=== PATIENT | female | born 1995 | race Caucasian/White ===

== ENCOUNTER 2018-10-04 12:32 | Emergency (ER) | payer MEDICAID, OTHER ==
[~2018-10-04] VITALS: Ht 165.1 cm; Wt 95.3 kg
[~2018-10-04 12:32] MED LIST: DOXY1TCP PO
[2018-10-04 12:55] VITALS: BP 145/86
--- NOTE | 2018-10-04 13:08 | NUR ---
PT TO LOBBY
--- NOTE | 2018-10-04 13:21 | NUR ---
PT AMBULATED TO BED 02.
--- NOTE | 2018-10-04 13:36 | NUR ---
PT C/O NAUSEA AND DIZZINESS AT THIS TIME. DENIES NAUSEA, VOMITING, FEVER. PT STATES PAIN IS 0/10 AT THIS TIME. DENIES ANY DYSURIA. VSS; PATIENT POSITIONED FOR COMFORT; HOB ELEVATED; BEDRAILS UP X1; BED DOWN. ER MD MADE AWARE OF PT STATUS.
[2018-10-04 15:16] VITALS: BP 128/79
== END 2018-10-04 15:16 | disposition home or self-care (01) ==
LOC: MED 12:32
DX: N39.0 Urinary tract infection, site not specified (principal); N94.0 Mittelschmerz; K21.9 Gastro-esophageal reflux disease without esophagitis; Z79.899 Other long term (current) drug therapy
CPT/HCPCS: 81002; 81025; 99283

== ENCOUNTER 2019-07-08 11:31 | Emergency (ER) | payer OTHER ==
[~2019-07-08] VITALS: Ht 167.6 cm; Wt 121.3 kg
[2019-07-08 11:37] VITALS: BP 150/97
--- NOTE | 2019-07-08 11:50 | NUR ---
DR. HOOD AT BEDSIDE.
--- NOTE | 2019-07-08 12:05 | NUR ---
PT C/O NAUSEA AND ABD PAIN. PAIN 7/10 WHEN PALPATING LOWER ABD. PT STATES HER LMP WAS FEB 2. NORMAL FLOW LASTED 5 DAYS. PT STATES NO SPOTTING SINCE FEB 2. PT HAS TAKEN SEVERAL PREGNACY TEST; ALL WERE NEGATIVE. PT STATES THAT SHE HAS CRAMPING AT PM. PT IS COMFORTABLE AT BEDSIDE. NO PMHX NKA/NKDA.
--- NOTE | 2019-07-08 12:08 | NUR ---
LAB AT BEDSIDE.
--- NOTE | 2019-07-08 12:18 | NUR ---
PT AMBULATED TO RESTROOM FOR URINE.
--- NOTE | 2019-07-08 12:33 | NUR ---
ULTRASOUND AT BEDSIDE
[2019-07-08 12:35] LABS: BASOPHILS # (AUTO) 0.1 K/uL (0.00-0.22); BASOPHILS % (AUTO) 0.6 % (0.0-2.0); EOSINOPHILS # (AUTO) 0.1 K/uL (0-0.4); EOSINOPHILS % (AUTO) 0.9 % (0.0-4.0); HEMATOCRIT 43.6 % (36-48); LYMPHOCYTES # (AUTO) 2.8 K/uL (2.5-16.5); LYMPHOCYTES % (AUTO) 27.4 % (20.5-51.1); MEAN CORPUSCULAR HEMOGLOBIN 27 pg (27-31); MEAN CORPUSCULAR HGB CONC 32 g/dL (33-37); MEAN CORPUSCULAR VOLUME 84.2 fL (80-94); MONOCYTES # (AUTO) 0.5 K/uL (0.8-1.0); MONOCYTES % (AUTO) 4.7 % (1.7-9.3); NEUTROPHILS # (AUTO) 6.9 K/uL (1.8-7.7); NEUTROPHILS % (AUTO) 66.4 % (42.2-75.2); PLATELET COUNT (AUTO) 371 K/uL (140-450); RED BLOOD CELL COUNT(AUTO) 5.18 MIL/uL (4.20-5.40); RED CELL DISTRIBUTION WIDTH 15.2 % (11.6-13.7); WHITE BLOOD COUNT (AUTO) 10.3 K/uL (4.8-10.8)
--- NOTE | 2019-07-08 13:54 | NUR ---
PT IS AT BEDSIDE. RESTING. VITALS ARE STABLE. BREATHING IS UNLABORED AND EVEN.
[2019-07-08 14:24] LABS: FREE T4 (FREE THYROXINE) 0.91 ng/dL (0.76-1.46); THYROID STIMULATING HORMONE 2.35 uIU/mL (0.34-3.74)
[2019-07-08 14:26] LABS: APPEARANCE,URINE CLEAR (CLEAR); BILIRUBIN,URINE NEGATIVE (NEGATIVE); BLOOD, URINE TRACE-L (NEGATIVE); COLOR,URINE YELLOW (YELLOW); LEUKOCYTE ESTERASE ,URINE NEGATIVE (NEGATIVE); NITRITE, URINE NEGATIVE (NEGATIVE); PH,URINE 6.5 (5.0-9.0); UGLUCOSE NEGATIVE (NEGATIVE)
[2019-07-08 14:30] VITALS: BP 117/76
--- NOTE | 2019-07-08 14:31 | NUR ---
Patient discharged with v/s stable. Written and verbal after care instructions given and explained. Patient verbalized understanding. Ambulatory with steady gait. All questions addressed prior to discharge. Advised to follow up with PMD.
[2019-07-08 14:50] LABS: RBC,URINE 0-5 /HPF (0-5); WBC,URINE NONE SEEN /HPF (0-5)
== END 2019-07-08 14:31 | disposition home or self-care (01) ==
LOC: MED 11:31
DX: N91.2 Amenorrhea, unspecified (principal); K21.9 Gastro-esophageal reflux disease without esophagitis; Z79.899 Other long term (current) drug therapy
CPT/HCPCS: 36415; 76817; 81001; 84439; 84443; 84702; 85025; 86900; 86901; 99284; Q0092

== ENCOUNTER 2020-04-19 09:26 | Emergency (ER) | payer OTHER ==
[~2020-04-19] VITALS: Ht 165.1 cm; Wt 117.9 kg
[2020-04-19 09:30] VITALS: BP 153/100
--- NOTE | 2020-04-19 09:34 | NUR ---
PT AMBULATED TO BED 12.
--- NOTE | 2020-04-19 09:42 | NUR ---
24 YO F BIB SELF FOR C/C OF NAUSEA AND VOMITING (TWICE TODAY PRIOR TO ARRIVAL) WITH 9/10 EPIGASTRIC PAIN. PT STATES +CHILLS, DENIES FEVER. PT HAD A POSITIVE TEST YESTERDAY. . LMP 01/28/21. DENIES PMH NKA
--- NOTE | 2020-04-19 09:43 | NUR ---
Dr. Dong at pt bedside for further evaluation.
[2020-04-19] MEDS ORDERED: ONDANSETRON 4 MG/2 ML VIAL IVP ONE (09:45)
[2020-04-19] MEDS ORDERED: ALUMINUM HYD/MAG/SIMETHICONE 30 ML, DICYCLOMINE HCL LIQUID 20 MG, LIDOCAINE VISCOUS 2% ... PO ONE ×3 (09:45)
[2020-04-19] MEDS ORDERED: NACL 0.9% 1,000 ML IV SCH (09:45)
[2020-04-19] MEDS ORDERED: ALUMINUM HYD/MAG/SIMETHICONE 30 ML UDC ONE (09:49)
[2020-04-19] MEDS ORDERED: LIDOCAINE VISCOUS 2% 20 ML UDC ONE (09:49)
[2020-04-19] MEDS ORDERED: DICYCLOMINE HCL LIQUID 10 MG/5 ML UDC ONE (09:50)
--- NOTE | 2020-04-19 09:53 | NUR ---
customer support technician at pt bedside.
[2020-04-19 09:57] LABS: BASOPHILS % (AUTO) 0.3 % (0.0-2.0); EOSINOPHILS # (AUTO) 0.1 K/uL (0-0.4); EOSINOPHILS % (AUTO) 0.4 % (0.0-4.0); HEMATOCRIT 41.5 % (36-48); HEMOGLOBIN 13.6 g/dL (12.0-16.0); LYMPHOCYTES # (AUTO) 2.5 K/uL (2.5-16.5); LYMPHOCYTES % (AUTO) 19.4 % (20.5-51.1); MEAN CORPUSCULAR HEMOGLOBIN 28 pg (27-31); MEAN CORPUSCULAR HGB CONC 33 g/dL (33-37); MEAN CORPUSCULAR VOLUME 84.8 fL (80-94); MONOCYTES # (AUTO) 0.7 K/uL (0.8-1.0); MONOCYTES % (AUTO) 5.7 % (1.7-9.3); NEUTROPHILS # (AUTO) 9.5 K/uL (1.8-7.7); NEUTROPHILS % (AUTO) 74.2 % (42.2-75.2); PLATELET COUNT (AUTO) 340 K/uL (140-450); RED BLOOD CELL COUNT(AUTO) 4.89 MIL/uL (4.20-5.40); RED CELL DISTRIBUTION WIDTH 15.2 % (11.6-13.7); WHITE BLOOD COUNT (AUTO) 12.9 K/uL (4.8-10.8)
--- NOTE | 2020-04-19 10:04 | NUR ---
Pt unable to provide UA at this time, ice chips and IV fluids started. Will re-assess.
[2020-04-19 10:14] LABS: ALBUMIN 4.1 g/dL (3.4-5.0); ANION GAP 17.4 (8-16); CARBON DIOXIDE 24.2 mmol/L (21-32); CREATININE 0.8 mg/dL (0.6-1.3); POTASSIUM 3.6 mmol/L (3.5-5.1); TOTAL BILIRUBIN 0.5 mg/dL (0.0-1.0)
--- NOTE | 2020-04-19 10:34 | NUR ---
Pt ambulated to restroom for UA collection.
--- NOTE | 2020-04-19 10:52 | NUR ---
UA sample collected and walked to lab.
[2020-04-19 11:01] LABS: APPEARANCE,URINE SL CLOUDY (CLEAR); BILIRUBIN,URINE NEGATIVE (NEGATIVE); BLOOD, URINE NEGATIVE (NEGATIVE); COLOR,URINE DARK YELLOW (YELLOW); LEUKOCYTE ESTERASE ,URINE 2+ (NEGATIVE); NITRITE, URINE POSITIVE (NEGATIVE); UGLUCOSE NEGATIVE (NEGATIVE)
[2020-04-19] MEDS ORDERED: cefTRIAXone 1,000 MG VIAL ONE (11:43)
--- NOTE | 2020-04-19 11:49 | NUR ---
Pt resting, visible equal rise and fall of chest. Provided warm blanket, VSS, will continue to monitor.
[2020-04-19 11:50] LABS: RBC,URINE 0-5 /HPF (0-5); WBC,URINE 20-60 /HPF (0-5)
[2020-04-19] MEDS ORDERED: PYRI-218 PO (12:38)
[2020-04-19] MEDS ORDERED: CEPH500C16 PO (12:38)
[2020-04-19] MEDS ORDERED: ONDA4TAB PO (12:38)
[2020-04-19 12:51] VITALS: BP 148/84
--- NOTE | 2020-04-19 12:51 | NUR ---
Patient discharged with v/s stable. Written and verbal after care instructions given and explained. Patient alert, oriented and verbalized understanding of instructions. Ambulatory with steady gait. All questions addressed prior to discharge. ID band removed. Patient advised to follow up with PMD. Rx of Keflex 500mg PO BID, zofran 4mg PO PRN N/V, and Vitamin B6 50mg BID given. Patient educated on indication of medication including possible reaction and side effects. Opportunity to ask questions provided and answered.
== END 2020-04-19 12:51 | disposition home or self-care (01) ==
LOC: MED 09:26
DX: O21.9 Vomiting of pregnancy, unspecified (principal); O26.891 Other specified pregnancy related conditions, first trimester; E86.0 Dehydration; K21.9 Gastro-esophageal reflux disease without esophagitis; Z3A.01 Less than 8 weeks gestation of pregnancy
CPT/HCPCS: 36415; 80053; 81001; 81025; 83690; 84702; 85025; 87086; 96361; 96365; 96375; 99284; J0696; J2405; J7030

== ENCOUNTER 2020-05-01 10:54 | Emergency (ER) | payer OTHER ==
[~2020-05-01] VITALS: Ht 172.7 cm; Wt 99.8 kg
[~2020-05-01 10:54] MED LIST changes: +CEPH500C16 PO; +ONDA4TAB PO; +PYRI-218 PO
[2020-05-01 11:07] VITALS: BP 129/79
--- NOTE | 2020-05-01 11:14 | NUR ---
24 Y/O FEMALE BIBS C/O ABD PAIN X3 DAYS, PT STATES PAIN IS PERIUMBILICAL AND IS BURNING/SHARP IN CHARACTER, 10/25. PT IS HAVING N/V, AND TOOK HER LAST ZOFRAN YESTERDAY. PT IS APPROX 8 WEEKS , LMP 01/29/20. DENIES ANY VAGINAL BLEEDING OR DISCHARGE. GCS 15, AMBULATORY WITH STEADY GAIT. PATIENT STATES THAT ABDOMINAL PAIN IS GETTING WORSE AND SHE IS NOT ABLE TO KEEP ANYTHING DOWN. NO PMH NKDA
--- NOTE | 2020-05-01 11:16 | NUR ---
PATIENT NOT ABLE TO URINATE AT THIS TIME
[2020-05-01] MEDS ORDERED: ONDANSETRON 4 MG ODT PO ONE (11:50)
[2020-05-01] MEDS ORDERED: FAMOTIDINE 20 MG TAB PO ONE (11:50)
[2020-05-01 12:05] LABS: BASOPHILS # (AUTO) 0.1 K/uL (0.00-0.22); BASOPHILS % (AUTO) 0.4 % (0.0-2.0); EOSINOPHILS % (AUTO) 0.2 % (0.0-4.0); HEMATOCRIT 39.1 % (36-48); HEMOGLOBIN 12.9 g/dL (12.0-16.0); LYMPHOCYTES # (AUTO) 2.3 K/uL (2.5-16.5); LYMPHOCYTES % (AUTO) 19.6 % (20.5-51.1); MEAN CORPUSCULAR HEMOGLOBIN 28 pg (27-31); MEAN CORPUSCULAR HGB CONC 33 g/dL (33-37); MEAN CORPUSCULAR VOLUME 85.7 fL (80-94); MONOCYTES # (AUTO) 0.6 K/uL (0.8-1.0); MONOCYTES % (AUTO) 4.8 % (1.7-9.3); NEUTROPHILS # (AUTO) 8.9 K/uL (1.8-7.7); PLATELET COUNT (AUTO) 359 K/uL (140-450); RED BLOOD CELL COUNT(AUTO) 4.57 MIL/uL (4.20-5.40); WHITE BLOOD COUNT (AUTO) 11.9 K/uL (4.8-10.8)
[2020-05-01] MEDS ORDERED: ACETAMINOPHEN 325 MG TAB PO ONE (13:20)
[2020-05-01 14:09] LABS: ALBUMIN 3.4 g/dL (3.4-5.0); ANION GAP 14.8 (8-16); CARBON DIOXIDE 23.5 mmol/L (21-32); CREATININE 0.8 mg/dL (0.6-1.3); POTASSIUM 4.3 mmol/L (3.5-5.1); TOTAL BILIRUBIN 0.3 mg/dL (0.0-1.0)
[2020-05-01] MEDS ORDERED: DOXY1TCP PO (14:35)
[2020-05-01 14:40] VITALS: BP 120/80
--- NOTE | 2020-05-01 14:40 | NUR ---
Patient discharged with v/s stable. Written and verbal after care instructions given and explained. Patient alert, oriented and verbalized understanding of instructions. Ambulatory with steady gait. All questions addressed prior to discharge. ID band removed. Patient advised to follow up with PMD. Rx of Doxycycline 100mg given. Patient educated on indication of medication including possible reaction and side effects. Opportunity to ask questions provided and answered.
== END 2020-05-01 14:40 | disposition home or self-care (01) ==
LOC: MED 10:54
DX: O99.611 Diseases of the digestive system complicating pregnancy, first trimester (principal); O21.0 Mild hyperemesis gravidarum; K29.70 Gastritis, unspecified, without bleeding; F12.90 Cannabis use, unspecified, uncomplicated; Z3A.08 8 weeks gestation of pregnancy
CPT/HCPCS: 36415; 76705; 80053; 83690; 85025; 99284; Q0162

== ENCOUNTER 2020-05-07 14:54 | Emergency (ER) | payer OTHER ==
[~2020-05-07] VITALS: Ht 167.6 cm; Wt 113.5 kg
[2020-05-07 15:11] VITALS: BP 146/109
--- NOTE | 2020-05-07 15:17 | NUR ---
MK. HANDED ON URINE CUP.
--- NOTE | 2020-05-07 15:55 | NUR ---
PATIENT AMBULATED TO BED 04
--- NOTE | 2020-05-07 16:02 | NUR ---
RECEIVED A 24/F FROM TRIAGE WITH A C/O GEN WEAKNESS AND N/V X 3 DAYS. PT REPORTS BEING 8 WEEKS . . NO ACTIVE VOMITTING AT THIS TIME. PLACED INTO GOWN, BLANKET PROVIDED. PENDING MSE.
--- NOTE | 2020-05-07 16:05 | NUR ---
DR CAPUTO AT BEDSIDE EXAMINING PATIENT
[2020-05-07] MEDS ORDERED: NACL 0.9% 1,000 ML IV ONE (16:10)
--- NOTE | 2020-05-07 16:41 | NUR ---
IV NORMAL SALINE INFUSING WITH NO ISSUES -- ENCOURAGED PT TO CALL STAFF WHEN READY TO VOID. EDUCATED ON NEED FOR URINE.
[2020-05-07 16:47] LABS: BASOPHILS # (AUTO) 0.1 K/uL (0.00-0.22); BASOPHILS % (AUTO) 0.5 % (0.0-2.0); EOSINOPHILS % (AUTO) 0.3 % (0.0-4.0); HEMATOCRIT 40.7 % (36-48); HEMOGLOBIN 13.3 g/dL (12.0-16.0); LYMPHOCYTES # (AUTO) 2.5 K/uL (2.5-16.5); LYMPHOCYTES % (AUTO) 16.3 % (20.5-51.1); MEAN CORPUSCULAR HEMOGLOBIN 28 pg (27-31); MEAN CORPUSCULAR HGB CONC 33 g/dL (33-37); MEAN CORPUSCULAR VOLUME 85.6 fL (80-94); MONOCYTES # (AUTO) 0.8 K/uL (0.8-1.0); MONOCYTES % (AUTO) 5.4 % (1.7-9.3); NEUTROPHILS % (AUTO) 77.5 % (42.2-75.2); PLATELET COUNT (AUTO) 356 K/uL (140-450); RED BLOOD CELL COUNT(AUTO) 4.75 MIL/uL (4.20-5.40); RED CELL DISTRIBUTION WIDTH 14.8 % (11.6-13.7); WHITE BLOOD COUNT (AUTO) 15.4 K/uL (4.8-10.8)
--- NOTE | 2020-05-07 16:55 | NUR ---
ULTRASOUND COMPLETE. PENDING RESULTS.
[2020-05-07 17:11] LABS: ALBUMIN 3.8 g/dL (3.4-5.0); ANION GAP 14.9 (8-16); CARBON DIOXIDE 25.7 mmol/L (21-32); CREATININE 0.8 mg/dL (0.6-1.3); POTASSIUM 3.6 mmol/L (3.5-5.1); TOTAL BILIRUBIN 0.4 mg/dL (0.0-1.0)
--- NOTE | 2020-05-07 17:42 | NUR ---
REPORT TO BRAXTON LEIVA. CARE TRANSFERRED.
--- NOTE | 2020-05-07 17:52 | NUR ---
PATIENT STATES SHE IS UNABLE TO PROVIDE URINE AT THIS TIME. WILL FOLLOW UP WITH PATIENT
--- NOTE | 2020-05-07 18:36 | NUR ---
Dr. Alfred is reevaluating the patient at bedside.
--- NOTE | 2020-05-07 18:45 | NUR ---
Per ERMD once pt is able to urinate administer urine dip.
--- NOTE | 2020-05-07 19:32 | NUR ---
Pt c/o of nausea & vomiting - ERMD made aware and at bedside for medical evaluation.
[2020-05-07 19:33] LABS: APPEARANCE,URINE CLEAR (CLEAR); BILIRUBIN,URINE 1+ (NEGATIVE); BLOOD, URINE TRACE-I (NEGATIVE); COLOR,URINE ORANGE (YELLOW); LEUKOCYTE ESTERASE ,URINE NEGATIVE (NEGATIVE); NITRITE, URINE NEGATIVE (NEGATIVE); UGLUCOSE NEGATIVE (NEGATIVE)
[2020-05-07] MEDS ORDERED: ONDANSETRON 4 MG/2 ML VIAL IVP ONE (19:35)
--- NOTE | 2020-05-07 19:35 | NUR ---
Per ERMD - administer Zofran IVP 4mg . Pt can be d/c after positive PO challenge.
[2020-05-07 19:43] LABS: WBC,URINE 0-5 /HPF (0-5)
--- NOTE | 2020-05-07 20:05 | NUR ---
PO CHALLENGE ADMINISTERED - PT WAS ABLE TO HOLD DOWN WATER. PT STATES SHE IS FEELING MUCH BETTER AFTER RECEIVING ZOFRAN MEDICATION. MADDYD MADE AWARE.
--- NOTE | 2020-05-07 20:15 | NUR ---
IV removed, catheter intact and site benign. Applied folded 4x4 gauze and tape to stop bleeding.
[2020-05-07 20:17] VITALS: BP 135/85
== END 2020-05-07 20:17 | disposition home or self-care (01) ==
LOC: MED 14:54
DX: O21.9 Vomiting of pregnancy, unspecified (principal); K21.9 Gastro-esophageal reflux disease without esophagitis; Z79.899 Other long term (current) drug therapy
CPT/HCPCS: 36415; 76801; 80053; 81001; 81025; 85025; 96361; 96374; 99285; J2405; J7030